=== PATIENT | male | born 1955 | race Caucasian/White ===

== ENCOUNTER 2019-03-04 12:54 | Emergency (ER) | payer OTHER ==
[2019-03-04] MEDS ORDERED: Diphtheria,Pertussis(Acell),Tetanus Vaccine 0.5 ML SDV IM ONE (13:59)
--- NOTE | 2019-03-04 13:59 | EDM.PDOC ---
ED HPI GENERAL MEDICAL PROBLEM - General Chief Complaint: Upper Extremity Injury/Pain Stated Complaint: INJURED RIGHT HAND Time Seen by Provider: 03/04/19 13:51 Source of Information: Reports: Patient History Limitations: Reports: No Limitations - History of Present Illness INITIAL COMMENTS - FREE TEXT/NARRATIVE: Alert 63 yo male presents to ER with right hand injury. Patient's was caught between boat and dock resulting in a laceration involving the web space of fourth/fifth digit with avulsion. Patient is unaware of tetanus status. Patient is able to move fingers and denies numbness, tingling and weakness. He is right handed. Injury happened 30-60 minutes before ER visit. Right Hand Pain Score (Numeric/FACES): 8 - Related Data Allergies Allergy/AdvReac Type Severity Reaction Status Date / Time No Known Allergies Allergy Verified 03/04/19 13:43 Home Meds: Home Meds Aspirin 325 mg PO DAILY 03/04/19 [History] Furosemide 20 mg PO DAILY 03/04/19 [History] Gabapentin [Neurontin] 300 mg PO BID 03/04/19 [History] Iron 65 mg PO DAILY 03/04/19 [History] Magnesium 400 mg PO DAILY 03/04/19 [History] Multivitamin [Multivitamins] 1 each PO DAILY 03/04/19 [History] Primidone 250 mg PO BID 03/04/19 [History] cephALEXin [Keflex] 500 mg PO BID 5 Days #10 cap 03/04/19 [Rx] Past Medical History HEENT History: Reports: Impaired Vision Cardiovascular History: Reports: Afib Gastrointestinal History: Reports: None Neurological History: Reports: Other (See Below) 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 ED EXAM, GENERAL - Physical Exam Exam: See Below Exam Limited By: No Limitations General Appearance: Alert, WD/WN, Mild Distress Eye Exam: Bilateral Eye: EOMI, PERRL Nose: Normal Inspection, Normal Mucosa Respiratory/Chest: No Respiratory Distress, Lungs Clear, Normal Breath Sounds Cardiovascular: Normal Peripheral Pulses, Regular Rate, Rhythm Extremities: Normal Inspection, Normal Range of Motion, Normal Capillary Refill , Other (Right hand laceration from 4-5 digit webspace and avlusion of the tissue on niko extensor surface of proximal phalanx. ) ED TRAUMA EXTREMITY PROCEDURES - Laceration/Wound Repair Right Hand Lac/Wound Length In cm: 10 (involving fifth digit proximal phalanx flap across extensor surface and 4-5 webspace and along 4th digit) Appearance: Subcutaneous, Mildly Contaminated Distal NVT: Neuro & Vascular Intact Anesthetic Type: Local Local Anesthesia - Lidocaine (Xylocaine): 1% Plain Local Anesthesia - Bupivicaine (Marcaine): 0.5% Plain Local Anesthetic Volume: Other (3 cc Lidocaine) Skin Prep: Providone-Iodine (Betadine), Saline Saline Irrigation (cc's): 500 Exploration/Debridement/Repair: In a Bloodless Field, Explored to Base, Minimal Debridement, No Foreign Material Found, Wound Margins Revised, Multiple Flaps Aligned Closed With: Sutures Suture Size: 5-0 # of Sutures: 24 Suture Type: Nylon, Simple Drain Placement: No Sterile Dressing Applied: Provider Tetanus Status Addressed: Other (updated) Complications: Yes Complication Description: extensive dressing and ulnar gutter splint applied ( by me). Hand Lac/Wound Length In cm: 1.0 (Right Hand palm hypothenar plamar crease) Appearance: Subcutaneous Distal NVT: Neuro & Vascular Intact Anesthetic Type: Local Local Anesthesia - Lidocaine (Xylocaine): 1% Plain Local Anesthetic Volume: 2cc Skin Prep: Providone-Iodine (Betadine), Saline Saline Irrigation (cc's): 50 Exploration/Debridement/Repair: In a Bloodless Field, Explored to Base Closed With: Sutures Suture Size: 5-0 # of Sutures: 2 Drain Placement: No Sterile Dressing Applied: Provider Tetanus Status Addressed: Yes Course - Vital Signs Last Recorded V/S: Last Vital Signs Temp 35.1 C L 03/04/19 13:46 Pulse 47 L 03/04/19 13:46 Resp 13 03/04/19 13:46 BP 107/64 03/04/19 13:46 Pulse Ox 100 03/04/19 13:46 - Orders/Labs/Meds Orders: Active Orders 24 hr Category Date Time Status Vaccines to be Administered [RC] PER UNIT ROUTINE Care 03/04/19 13:59 Active Meds: Medications Discontinued Medications Generic Name Dose Route Start Last Admin Trade Name Duaen PRN Reason Stop Dose Admin Diphtheria/Tetanus/Acell Pertussis 0.5 ml 03/04/19 13:59 03/04/19 14:16 Adacel IM 03/04/19 14:00 0.5 ml .ONCE ONE Administration Lidocaine HCl Confirm 03/04/19 14:52 Xylocaine 1% Administered 03/04/19 14:53 Dose 20 ml .ROUTE .STK-MED ONE Departure - Departure Time of Disposition: 15:56 Disposition: Home, Self-Care 01 Clinical Impression: Laceration - Discharge Information Prescriptions: cephALEXin [Keflex] 500 mg PO BID 5 Days #10 cap Instructions: Cast or Splint Care, Adult, [id number], Tendinitis, Easy-to- Read, Laceration Care, Adult, [id number] Referrals: PCP,None [Primary Care Provider] - Forms: ED Department Discharge Additional Instructions: 1. Leave splint/dressing in place until follow-up with PCP or Hand Surgeon in 3 -5 days for wound check. 2. Keflex 500mg BID x 5 days for infection prevention. 3. Ibuprofen 600-800mg very 6-8 hrs for pain and swelling. 4. Tylenol 500-1000mg every 6 hrs for mild pain as needed. 5. May use per comfort with splint in place. 6. Return to local ER if fever, increased pain swelling and infection concerns. 7. Suture will need to be removed in 10-14 days. If non healing concern consult with Hand surgeon recommended. - Problem List & Annotations (1) Laceration SNOMED Code(s): 219641035 Code(s): SNI9319 - Status: Acute Current Visit: Yes - My Orders Last 24 Hours: My Active Orders 03/04/19 13:59 Vaccines to be Administered [RC] PER UNIT ROUTINE - Assessment/Plan Last 24 Hours: My Active Orders 03/04/19 13:59 Vaccines to be Administered [RC] PER UNIT ROUTINE
[2019-03-04] MEDS ORDERED: Lidocaine 1% 20 ML MDV INJECT ONE (14:52)
[2019-03-04] MEDS: Lidocaine 1% 20 ML MDV ONE ×2 (15:00)
== END 2019-03-04 16:10 | disposition home or self-care (01) ==
LOC: JP.ED 12:54
DX: S61.411A Laceration without foreign body of right hand, initial encounter (principal); Z79.82 Long term (current) use of aspirin; Z23 Encounter for immunization; W23.0XXA Caught, crushed, jammed, or pinched between moving objects, initial encounter
CPT/HCPCS: 12004; 90471; 90715; 99282; J2001